=== PATIENT | male | born 1985 | race Caucasian/White ===

== ENCOUNTER 2017-01-01 07:06 | Emergency (ER) | payer SELFPAY ==
[~2017-01-01] VITALS: Ht 182.9 cm; Wt 152.0 kg
[2017-01-01] MEDS ORDERED: IV NORMAL SALINE 1000ML BAG 1,000 ML IV SCH (07:09)
[2017-01-01] MEDS ORDERED: FAMOTIDINE 20 MG/2 ML VIAL IVP ONE (07:15)
[2017-01-01] MEDS ORDERED: HYDROmorphone 2 MG/ML VIAL IV/SQ PRN (07:15)
[2017-01-01] MEDS ORDERED: 0.9 % SODIUM CHLORIDE 10 ML DISP.SYRIN. IV PRN (07:15)
[2017-01-01] MEDS ORDERED: ONDANSETRON PF 4 MG/2 ML VIAL. IV ONE (07:15)
--- NOTE | 2017-01-01 07:19 | PHYS DOC ---
Past Medical History Additional Past Medical Histor: history of colitis Past Surgical History: Tonsillectomy Smoking: Cigarettes, Greater than 1 pack/day Alcohol Use: None Drug Use: None Adult General Chief Complaint Chief Complaint: ABDOMINAL PAIN HPI HPI This is a pleasant 31-year-old male with a history of colitis about 9 months ago who presents with sudden onset of nausea vomiting diarrhea that woke him from sleep about 2 hours prior to arrival. He denies any recent travel outside the country, use of antibiotics, or sick contacts at work. Pain is described as an achy crampiness that gets anywhere from a 3 to attend. It comes in waves across his abdomen causing nausea vomiting nonbilious nonbloody of two- minute episodes Last 2 Hours and Diarrhea Described As Loose Watery without Blood or Mucus. Patient Denies Any Fevers, Chills, UTI Symptoms, ROM Food Consumption, Handling of Poultry, or Reptiles. Patient Works in a Factory. Patient Denies Any IV Drug Use, Trauma, or NSAID usage. Patient's pain at this point is 3 of 10 Review of Systems Review of Systems Constitutional: Denies fever or chills [] Eyes: Denies change in visual acuity, redness, or eye pain [] HENT: Denies nasal congestion or sore throat [] Respiratory: Denies cough or shortness of breath [] Cardiovascular: No additional information not addressed in HPI [] GI: His main complaint is abdominal pain described as crampy with nausea vomiting and diarrhea is nonbloody in nature. : Denies dysuria or hematuria [] Musculoskeletal: Denies back pain or joint pain [] Integument: Denies rash or skin lesions [] Neurologic: Denies headache, focal weakness or sensory changes [] Endocrine: Denies polyuria or polydipsia [] Current Medications Current Medications Current Medications Medications (Trade) Dose Ordered Sig/Peg Start Time Stop Time Status Last Admin Dose Admin Famotidine (Pepcid) 20 mg 1X ONCE 01/01/17 07:15 01/01/17 07:23 DC 01/01/17 07:20 20 MG Hydromorphone HCl (Dilaudid) 1 mg PRN Q15MIN PRN 01/01/17 07:15 01/02/17 07:14 01/01/17 07:20 1 MG Iohexol (Omnipaque 300 Mg/ml) 75 ml 1X ONCE 01/01/17 07:45 01/01/17 07:46 DC 01/01/17 08:04 60 ML Ondansetron HCl (Zofran) 4 mg 1X ONCE 01/01/17 07:15 01/01/17 07:23 DC 01/01/17 07:20 4 MG Sodium Chloride (Normal Saline Flush) 10 ml QSHIFT PRN 01/01/17 07:15 01/01/17 07:21 10 ML Allergies Allergies Allergies Coded Allergies Type Severity Reaction Last Updated Verified No Known Drug Allergies 01/01/17 No Physical Exam Physical Exam Vital signs recorded on the chart patient is not tachycardic, not febrile and not hypoxic. Constitutional: Well developed, well nourished, as patient is relatively obese nontoxic in appearance although he is uncomfortable. HENT: Normocephalic, atraumatic, bilateral external ears normal, oropharynx moist, no oral exudates, nose normal. [] Eyes: PERRLA, EOMI, conjunctiva normal, no discharge. [] Neck: Normal range of motion, no tenderness, supple, no stridor. [] Cardiovascular:Heart rate regular rhythm, no murmur [] Lungs & Thorax: Bilateral breath sounds clear to auscultation [] Abdomen: Patient developed increased bowel sounds hyperactive no guarding rebound or organomegaly. There is no Mcdermott's or McBurney's point tenderness to palpation. Skin: Warm, dry, no erythema, no rash. [] Extremities: No tenderness, no cyanosis, no clubbing, ROM intact, no edema. [] Neurologic: Alert and oriented X 3, Psychologic: Affect normal, judgement normal, mood normal. [] Current Patient Data Vital Signs Vital Signs Date Time Temp Pulse Resp B/P (MAP) Pulse Ox O2 Delivery O2 Flow Rate FiO2 01/01/17 07:20 16 01/01/17 07:06 97.9 100 152/90 (110) 100 Room Air 97.9 Lab Values Laboratory Tests Test 01/01/17 07:11 01/01/17 08:25 White Blood Count 16.6 x10^3/uL (4.0-11.0) H Red Blood Count 6.51 x10^6/uL (4.30-5.70) H Hemoglobin 18.5 g/dL (13.0-17.5) H Hematocrit 55.7 % (39.0-53.0) H Mean Corpuscular Volume 86 fL (79-100) Mean Corpuscular Hemoglobin 29 pg (25-35) Mean Corpuscular Hemoglobin Concent 33 g/dL (31-37) Red Cell Distribution Width 14.5 % (11.5-14.5) Platelet Count 340 x10^3/uL (140-400) Neutrophils (%) (Auto) 77 % (31-73) H Lymphocytes (%) (Auto) 18 % (24-48) L Monocytes (%) (Auto) 4 % (0-9) Eosinophils (%) (Auto) 1 % (0-3) Basophils (%) (Auto) 0 % (0-3) Neutrophils # (Auto) 12.8 x10^3uL (1.8-7.7) H Lymphocytes # (Auto) 2.9 x10^3/uL (1.0-4.8) Monocytes # (Auto) 0.7 x10^3/uL (0.0-1.1) Eosinophils # (Auto) 0.2 x10^3/uL (0.0-0.7) Basophils # (Auto) 0.1 x10^3/uL (0.0-0.2) Platelet Estimate Pending Sodium Level 139 mmol/L (136-145) Potassium Level 3.7 mmol/L (3.5-5.1) Chloride Level 103 mmol/L (98-107) Carbon Dioxide Level 21 mmol/L (21-32) Anion Gap 15 (6-14) H Blood Urea Nitrogen 23 mg/dL (8-26) Creatinine 1.5 mg/dL (0.7-1.3) H Estimated GFR (Cockcroft-Gault) 54.6 BUN/Creatinine Ratio 15 (6-20) Glucose Level 156 mg/dL (70-99) H Calcium Level 9.8 mg/dL (8.5-10.1) Total Bilirubin 0.7 mg/dL (0.2-1.0) Aspartate Amino Transferase (AST) 17 U/L (15-37) Alanine Aminotransferase (ALT) 31 U/L (16-63) Alkaline Phosphatase 100 U/L (46-116) Total Protein 7.6 g/dL (6.4-8.2) Albumin 3.9 g/dL (3.4-5.0) Albumin/Globulin Ratio 1.1 (1.0-1.7) Lipase 88 U/L (73-393) Urine Collection Type Unknown Urine Color Nimo Urine Clarity Cloudy Urine pH 5.5 Urine Specific [place] >=1.030 Urine Protein 100 mg/dL (NEG-TRACE) Urine Glucose (UA) Negative mg/dL (NEG) Urine Ketones (Stick) Trace mg/dL (NEG) Urine Blood Negative (NEG) Urine Nitrite Negative (NEG) Urine Bilirubin Small (NEG) Urine Urobilinogen Dipstick 0.2 mg/dL (0.2 mg/dL) Urine Leukocyte Esterase Negative (NEG) Urine RBC Occ /HPF (0-2) Urine WBC 1-4 /HPF (0-4) Urine Squamous Epithelial Cells Few /LPF Urine Bacteria Moderate /HPF (0-FEW) Urine Hyaline Casts Many /HPF Urine Mucus Slight /LPF Laboratory Tests 01/01/17 07:11 Laboratory Tests 01/01/17 07:11 EKG EKG [] Radiology/Procedures Radiology/Procedures [] [address] [place] [address] IMAGING REPORT Signed PATIENT: RINA ARVIZU ACCOUNT: [id number] : 1985 LOCATION: ER AGE: 31 SEX: M EXAM STATUS: REG ER ORD. PHYSICIAN: CATRACHO DURHAM MD REASON: sudden onset of nausea and vomiting with diarrhea PROCEDURE: CT ABD PELV W/ IV CONTRST ONLY Examination: CT of the abdomen pelvis with IV contrast History: History of sudden onset of nausea, vomiting, diarrhea Comparison: None available Technique: Axial CT images of the abdomen pelvis were performed with IV contrast. Coronal and sagittal reformats are performed PQRS Compliance Statement: One or more of the following individualized dose reduction techniques were utilized for this examination: 1. Automated exposure control 2. Adjustment of the mA and/or kV according to patient size 3. Use of iterative reconstruction technique. Findings: The visualized bibasal lungs demonstrate mild atelectasis. No evidence of free air identified in the abdomen. There is diffuse decreased attenuation noted throughout the liver likely hepatic steatosis. The gallbladder is mildly distended. The visualized spleen demonstrates a lucent line in the distal tip anteriorly likely a cleft. There is small amount of fluid identified around the spleen and the liver. The stomach is mildly distended. The visualized pancreas grossly appears unremarkable. There is moderate diffuse inflammatory fat stranding with edema identified in the mesentery surrounding the small bowel throughout. The appendix is normal. Few of the small bowel are mildly fluid distended. Small amount of fluid identified in the colon. Urinary bladder is mildly distended. Small amount of free fluid identified in the pelvis. The bilateral kidneys enhance symmetrically. The aorta is normal in caliber. No evidence of lytic bony destructive lesion. Impression: 1. Moderate diffuse inflammatory fat stranding identified in the mesentery surrounding the small bowel with mild distention of the small bowel loops likely suggestive of severe enteritis. 2. Small amount of free fluid identified in the mesentery, splenic, perihepatic region and in the pelvis. 3. Hepatic steatosis. DICTATED and SIGNED BY: GETACHEW DELANEY MD DATE: 01/01/17817 CC: CATRACHO DURHAM MD; NO PCP ~ Course & Med Decision Making Course & Med Decision Making Pertinent Labs and Imaging studies reviewed. (See chart for details) and on arrival with history of colitis is to evaluate for signs of bowel inflammation causing obstruction. Patient was CMP, CBC, urinalysis completed. I will give him fluids, antiemetics and pain control to facilitate a repeat exam. He will have a CT scan abdomen and pelvis with IV contrast. Small bowel obstruction, Acute pancreatitis. Appendicitis. Acute hepatitis. Peptic ulcer disease. Nonulcer dyspepsia. Irritable bowel disease. Functional gallbladder disorder. Sphincter of Oddi dysfunction. Diseases of the right kidney. Right-sided pneumonia. Subhepatic or intraabdominal abscess. Perforated viscus. Cardiac ischemia. Black spider envenomation [] This is the differential diagnosis considered upon arrival. Patient tells me that their symptoms given during CC are improved. We reviewed labs and radiology reports with patient and any family at bedside. Time is now 8 :48 AM we specifically talked about elevated creatinine which is likely secondary to volume depletion. Elevated white count which is likely secondary to stress of the infectious etiology causing his nausea vomiting diarrhea which is likely viral nature. We discussed a CT scan which specifically illustrated is likely enteritis. Given the acuity of the symptoms with no fevers this is likely a virus bacterial enteritis can be possible as well but given his symptoms and history doubt Campylobacter, Klebsiella, Yesernia, salmonella, Shigella, Escherichia coli, or C. difficile Patient received all of his fluids he feels markedly better and would like to go home. Time is now 90 3 AM patient's vital signs were improved we talked about the results on the CAT scan again and reasons to return. Dragon Disclaimer Dragon Disclaimer This electronic medical record was generated, in whole or in part, using a voice recognition dictation system. Departure Departure Impression: Primary Impression: Nausea and vomiting Additional Impressions: Diarrhea Dehydration Leukocytosis Enteritis Disposition: HOME, SELF-CARE Condition: STABLE Patient Instructions: Abdominal Pain (Nonspecific), Dehydration, Adult, Diarrhea, Nausea and Vomiting Additional Instructions: My discharge plan Follow up: In addition patient is asked to followup with their primary doctor, within a week for followup examination and to address patient's ongoing medical conditions. Because patient does not have a regular medical doctor, a local physician Resource Sheet will be provided to establish care primary care. Patient is advised that in the Emergency Department primary complaints are addressed and only in light of known signs and symptoms. Patient should return immediately to the emergency department if new signs and symptoms develop or patient's condition worsens in any way. At time of discharge patient was in stable condition and had verbalized understanding of the discharge instructions. Scripts Ondansetron (ZOFRAN ODT) 4 Mg Tab.rapdis 4 MG PO BID Y for NAUSEA/VOMITING for 7 Days, #14 TAB Prov: CATRACHO DURHAM MD 01/01/17 Diphenoxylate Hcl/Atropine (LOMOTIL TABLET) 1 Each Tablet 1 TAB PO QID, #20 TAB Prov: CATRACHO DURHAM MD 01/01/17 Hydrocodone Bit/Acetaminophen (HYDROCODONE-APAP 5-325 ) 1 Each Tablet 1-2 TAB PO PRN Q6HRS Y for PAIN for 5 Days, #10 TAB 0 Refills Prov: CATRACHO DURHAM MD 01/01/17 Dicyclomine Hcl (BENTYL) 10 Mg Capsule 1 CAP PO TID, #30 CAP 3 Refills Prov: CATRACHO DURHAM MD 01/01/17 Problem Qualifiers CATRACHO DURHAM MD Jan 01, 2017 07:19
[2017-01-01 07:24] LABS: BASO # 0.1 x10^3/uL (0.0-0.2); BASO % 0 % (0-3); EOS % 1 % (0-3); HEMATOCRIT 55.7 % (39.0-53.0); HEMOGLOBIN 18.5 g/dL (13.0-17.5); LYMPH # 2.9 x10^3/uL (1.0-4.8); LYMPH % 18 % (24-48); MEAN CORPUSCULAR HEMOGLOBIN 29 pg (25-35); MEAN CORPUSCULAR HGB CONC 33 g/dL (31-37); MEAN CORPUSCULAR VOLUME 86 fL (79-100); MONO % 4 % (0-9); NEUT % 77 % (31-73); PLATELET COUNT 340 x10^3/uL (140-400); RED BLOOD COUNT 6.51 x10^6/uL (4.30-5.70); RED CELL DISTRIBUTION WIDTH 14.5 % (11.5-14.5); WHITE BLOOD COUNT 16.6 x10^3/uL (4.0-11.0)
[2017-01-01 07:30] LABS: CALCIUM 9.8 mg/dL (8.5-10.1); CREATININE 1.5 mg/dL (0.7-1.3); GFR 54.6; POTASSIUM 3.7 mmol/L (3.5-5.1)
[2017-01-01 07:36] LABS: ALBUMIN 3.9 g/dL (3.4-5.0); ALBUMIN/GLOBULIN RATIO 1.1 (1.0-1.7); TOTAL BILIRUBIN 0.7 mg/dL (0.2-1.0); TOTAL PROTEIN 7.6 g/dL (6.4-8.2)
[2017-01-01] MEDS ORDERED: IOHEXOL 300 MG/ML 75 ML VIAL IV ONE (07:45)
--- NOTE | 2017-01-01 08:27 | RAD ---
Examination: CT of the abdomen pelvis with IV contrast History: History of sudden onset of nausea, vomiting, diarrhea Comparison: None available Technique: Axial CT images of the abdomen pelvis were performed with IV contrast. Coronal and sagittal reformats are performed PQRS Compliance Statement: One or more of the following individualized dose reduction techniques were utilized for this examination: 1. Automated exposure control 2. Adjustment of the mA and/or kV according to patient size 3. Use of iterative reconstruction technique. Findings: The visualized bibasal lungs demonstrate mild atelectasis. No evidence of free air identified in the abdomen. There is diffuse decreased attenuation noted throughout the liver likely hepatic steatosis. The gallbladder is mildly distended. The visualized spleen demonstrates a lucent line in the distal tip anteriorly likely a cleft. There is small amount of fluid identified around the spleen and the liver. The stomach is mildly distended. The visualized pancreas grossly appears unremarkable. There is moderate diffuse inflammatory fat stranding with edema identified in the mesentery surrounding the small bowel throughout. The appendix is normal. Few of the small bowel are mildly fluid distended. Small amount of fluid identified in the colon. Urinary bladder is mildly distended. Small amount of free fluid identified in the pelvis. The bilateral kidneys enhance symmetrically. The aorta is normal in caliber. No evidence of lytic bony destructive lesion. Impression: 1. Moderate diffuse inflammatory fat stranding identified in the mesentery surrounding the small bowel with mild distention of the small bowel loops likely suggestive of severe enteritis. 2. Small amount of free fluid identified in the mesentery, splenic, perihepatic region and in the pelvis. 3. Hepatic steatosis.
[2017-01-01 08:31] LABS: BILIRUBIN,URINE SMALL (NEG); GLUCOSE,URINE NEGATIVE (NEG); NITRITE,URINE NEGATIVE (NEG); PH,URINE 5.5; PROTEIN,URINE 100 mg/dL (NEG-TRACE); UROBILINOGEN,URINE 0.2 mg/dL (0.2 mg/dL)
[2017-01-01 08:36] LABS: SQUAMOUS EPITHELIAL CELL,UR FEW /LPF
[2017-01-01 08:37] LABS: BACTERIA,URINE MODERATE /HPF (0-FEW)
[2017-01-01 08:40] LABS: RBC,URINE OCC /HPF (0-2)
[2017-01-01 08:47] VITALS: BP 142/77
[2017-01-01] MEDS ORDERED: ONDA4TAB10 PO (09:08)
[2017-01-01] MEDS ORDERED: DICY10CA53 PO (09:08)
[2017-01-01] MEDS ORDERED: DIPH1TAB PO (09:08)
[2017-01-01] MEDS ORDERED: HYDR-2758 PO (09:08)
[2017-01-01 09:48] LABS: PLT ESTIMATE ADEQUATE (ADEQUATE)
== END 2017-01-01 09:19 | disposition home or self-care (01) ==
LOC: ER 07:19
DX: E86.0 Dehydration (principal); K52.9 Noninfective gastroenteritis and colitis, unspecified; D72.829 Elevated white blood cell count, unspecified; F17.210 Nicotine dependence, cigarettes, uncomplicated
CPT/HCPCS: 36415; 74177; 80053; 81001; 83690; 85007; 85025; 87086; 96361; 96374; 96375; 99285; J1170; J2405; J7030; Q9967; S0028